=== PATIENT | female | born 1980 | race Two or more races ===

== ENCOUNTER 2019-07-08 18:45 | Emergency (ER) | payer OTHER ==
[~2019-07-08] VITALS: Ht 160 cm; Wt 55.8 kg
[~2019-07-08 18:45] MED LIST: ZOLOFT100 MG PO
[2019-07-08] MEDS ORDERED: ZOLOFT50 MG PO (19:10)
[2019-07-08] MEDS ORDERED: LABETALOL HCL200 MG PO (19:11)
[2019-07-08] MEDS ORDERED: PROPRANOLOL HCL20 MG PO (19:11)
[2019-07-08] MEDS ORDERED: LISINOPRIL5 MG PO (22:54)
== END 2019-07-08 23:12 ==
LOC: ER 18:45
DX: I10 Essential (primary) hypertension (principal)

== ENCOUNTER → 2020-07-19 | Outpatient (CLI) | payer OTHER ==
[~2020-07-19] MED LIST changes: +LABETALOL HCL200 MG PO; +LISINOPRIL5 MG PO; +PROPRANOLOL HCL20 MG PO; +ZOLOFT50 MG PO
== END | disposition home or self-care (01) ==
LOC: PRENATAL 09:21
PROVIDERS: ATTEND Obstetrics & Gynecology Maternal & Fetal Medicine
DX: O10.011 Pre-existing essential hypertension complicating pregnancy, first trimester (principal); O36.80X1 Pregnancy with inconclusive fetal viability, fetus 1; O09.521 Supervision of elderly multigravida, first trimester; Z36.89 Encounter for other specified antenatal screening; Z3A.13 13 weeks gestation of pregnancy

== ENCOUNTER → 2020-08-22 | Outpatient (CLI) | payer OTHER | END | disposition home or self-care (01) | LOC: PRENATAL 09:00 | PROVIDERS: ATTEND Obstetrics & Gynecology Maternal & Fetal Medicine | DX: O35.0XX1 Maternal care for (suspected) central nervous system malformation in fetus, fetus 1 (principal); O35.3XX1 Maternal care for (suspected) damage to fetus from viral disease in mother, fetus 1; O98.512 Other viral diseases complicating pregnancy, second trimester; O10.012 Pre-existing essential hypertension complicating pregnancy, second trimester; O09.522 Supervision of elderly multigravida, second trimester; Z36.89 Encounter for other specified antenatal screening; Z3A.18 18 weeks gestation of pregnancy ==

== ENCOUNTER 2020-08-30 16:44 | Outpatient (CLI) | payer OTHER ==
[2020-08-30] MEDS ORDERED: LABETALOL HCL100 MG PO (16:51)
[2020-08-30] MEDS ORDERED: ZOLOFT50 MG PO (16:51)
== END 2020-08-31 11:22 | disposition home or self-care (01) ==
LOC: LDR 16:44 → OBS/DEL 16:44
PROVIDERS: ATTEND Specialist
DX: O46.8X2 Other antepartum hemorrhage, second trimester (principal); O16.2 Unspecified maternal hypertension, second trimester

== ENCOUNTER → 2020-10-24 | Outpatient (CLI) | payer OTHER ==
[~2020-10-24] MED LIST changes: +LABETALOL HCL100 MG PO
== END | disposition home or self-care (01) ==
LOC: PRENATAL 10:30
PROVIDERS: ATTEND Obstetrics & Gynecology Maternal & Fetal Medicine
DX: O26.843 Uterine size-date discrepancy, third trimester (principal); O09.523 Supervision of elderly multigravida, third trimester; O10.013 Pre-existing essential hypertension complicating pregnancy, third trimester; Z36.89 Encounter for other specified antenatal screening; Z3A.28 28 weeks gestation of pregnancy

== ENCOUNTER 2020-12-27 10:45 | Inpatient (IN) | payer OTHER ==
[~2020-12-27] VITALS: Ht 160 cm; Wt 68.9 kg
[2020-12-27] MEDS ORDERED: PRENATAL PO (13:41)
[2021-01-05] MEDS ORDERED: PRENATAL + DHA1 EAC1 PO (08:12)
[2021-01-08] MEDS ORDERED: IBUPROFEN800 MG PO (07:38)
== END 2021-01-08 12:05 | disposition home or self-care (01) | DRG 784 ==
LOC: OB/GYN 01-05 05:00 → O/R 01-05 05:00 → OB/GYN 01-05 10:45 → SURG-SUITE 01-06 16:50
PROVIDERS: ADMIT Specialist; ATTEND Specialist
PROC: 0UB70ZZ Excision of Bilateral Fallopian Tubes, Open Approach (ICD-10-PCS; 2021-01-05)
PROC: 4A1HXFZ Monitoring of Products of Conception, Cardiac Rhythm, External Approach (ICD-10-PCS; 2021-01-05)
PROC: 10D00Z1 Extraction of Products of Conception, Low, Open Approach (ICD-10-PCS; principal; 2021-01-05 12:30)
DX: O65.5 Obstructed labor due to abnormality of maternal pelvic organs (principal); O10.02 Pre-existing essential hypertension complicating childbirth; O34.211 Maternal care for low transverse scar from previous cesarean delivery; Z30.2 Encounter for sterilization; Z37.0 Single live birth; Z3A.38 38 weeks gestation of pregnancy